=== PATIENT | female | born 1980 | race Caucasian/White ===

== ENCOUNTER 2016-11-01 10:50 | Day surgery (SDC) | payer OTHER ==
[~2016-11-01] VITALS: Ht 160 cm; Wt 73.0 kg
[~2016-11-01 10:50] MED LIST: AMOX1TAB64 PO; GUAI600T22 PO; LACT1CAP24 PO; METO-99 PO; NO HOME MEDS
[2016-11-01 11:14] VITALS: BP 124/81
[2016-11-01] MEDS ORDERED: LACTATED RINGERS 1,000 ML IV SCH (11:15)
[2016-11-01] MEDS ORDERED: ANAS1TAB PO (11:31)
[2016-11-01] MEDS ORDERED: BUPIVACAINE/PF-EPI 0.25% 1:200K ONE (11:37)
[2016-11-01] MEDS ORDERED: FENTANYL PF 250 MCG/5ML ONE (12:11)
[2016-11-01] MEDS ORDERED: MIDAZOLAM 1 MG/ML, 2ML ONE (12:11)
[2016-11-01] MEDS ORDERED: PROPOFOL 10 MG/ML, 20ML ONE (12:35)
[2016-11-01] MEDS ORDERED: ONDANSETRON 2MG/ML, 2ML ONE (12:35)
[2016-11-01] MEDS ORDERED: ROCURONIUM 10 MG/ML ONE (12:35)
[2016-11-01] MEDS ORDERED: CEFAZOLIN 1,000 MG ONE (12:35)
[2016-11-01] MEDS ORDERED: DEXAMETHASONE 4 MG/ML, 1ML ONE (12:35)
[2016-11-01] MEDS ORDERED: GLYCOPYRROLATE 0.2MG/1ML ONE (12:35)
[2016-11-01] MEDS ORDERED: METOCLOPRAMIDE 5 MG/ML, 2ML ONE (12:35)
[2016-11-01] MEDS ORDERED: NEOSTIGMINE 1 MG/ML, 10ML ONE (12:35)
[2016-11-01 12:50] LABS: HCG UR OBC PASS
[2016-11-01] MEDS ORDERED: OXYcodone 5 MG/5 ML ORAL.SOL UDC PO PRN (13:00)
[2016-11-01] MEDS ORDERED: MEPERIDINE/PF 25MG/0.5ML IVPush PRN (13:00)
[2016-11-01] MEDS ORDERED: MIDAZOLAM 1 MG/ML, 2ML IV PRN (13:00)
[2016-11-01] MEDS ORDERED: FENTANYL PF 100 MCG/2ML IV PRN (13:00)
[2016-11-01] MEDS ORDERED: ONDANSETRON 2MG/ML, 2ML IVPush PRN (13:00)
[2016-11-01] MEDS ORDERED: HYDROmorphone 1 MG/ML, 1ML IV PRN (13:00)
[2016-11-01] MEDS ORDERED: LABETALOL 5MG/ML, 20ML IV PRN (13:00)
[2016-11-01] MEDS ORDERED: PROMETHAZINE 25 MG/ML, 1ML IV PRN (13:00)
[2016-11-01] MEDS ORDERED: OXYcodone 5 MG/5 ML ORAL.SOL UDC ONE (13:56)
[2016-11-01] MEDS ORDERED: FENTANYL PF 100 MCG/2ML ONE (14:11)
== END 2016-11-01 16:40 | disposition home or self-care (01) ==
LOC: OUT 10:50
PROVIDERS: ATTEND Obstetrics & Gynecology
DX: Z40.02 Encounter for prophylactic removal of ovary(s) (principal); N83.02 Follicular cyst of left ovary; N83.01 Follicular cyst of right ovary; Z90.10 Acquired absence of unspecified breast and nipple; Z85.3 Personal history of malignant neoplasm of breast
CPT/HCPCS: 36415; 58661; 81025; 85025; 88305; J0690; J1100; J2250; J2405; J2704; J2710; J2765; J3010; J7120; J3490

== ENCOUNTER → 2016-11-07 | Outpatient (CLI) | payer OTHER ==
[~2016-11-07] MED LIST changes: +ANAS1TAB PO
== END | disposition home or self-care (01) ==
LOC: CFH 09:02
PROVIDERS: ATTEND Internal Medicine Hematology & Oncology
DX: R91.1 Solitary pulmonary nodule (principal); C50.412 Malignant neoplasm of upper-outer quadrant of left female breast
CPT/HCPCS: 71250